=== PATIENT | male | born 1950 | race Caucasian/White ===

== ENCOUNTER 2019-07-24 13:37 | Emergency (ER) | payer MEDICARE ==
[~2019-07-24] VITALS: Ht 177.8 cm; Wt 117.9 kg
[2019-07-24] MEDS ORDERED: GLUCOTROL XL5 MG PO (14:40)
[2019-07-24] MEDS ORDERED: GLUCOPHAGE1000 MG PO (14:40)
[2019-07-24] MEDS ORDERED: TOPROL XL50 MG PO (14:41)
[2019-07-24] MEDS ORDERED: COZAAR50 MG PO (14:41)
[2019-07-24] MEDS ORDERED: ENDOCET 10-3251 EACH PO (14:42)
[2019-07-24] MEDS ORDERED: AMITRIPTYLINE H50 MG PO (14:42)
[2019-07-24] MEDS ORDERED: CLEOCIN HCL300 MG PO (15:33)
== END 2019-07-24 16:23 | disposition home or self-care (01) ==
LOC: ED 13:37
DX: E11.9 Type 2 diabetes mellitus without complications (principal); I10 Essential (primary) hypertension; Z87.891 Personal history of nicotine dependence; Z79.84 Long term (current) use of oral hypoglycemic drugs; Z79.899 Other long term (current) drug therapy
CPT/HCPCS: 96372; 99282